=== PATIENT | female | born 1970 | race Two or more races ===

== ENCOUNTER 2023-02-22 18:00 | Emergency (ER) | payer MEDICAID ==
[~2023-02-22] VITALS: Ht 167.6 cm; Wt 83.6 kg
[2023-02-22] MEDS ORDERED: ibuprofen tablet 400 MG TABLET PO STA (20:03)
[2023-02-22] MEDS ORDERED: HYDROcodone/acetaminophen 5mg/325mg tablet PO STA (20:03)
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
[2023-02-22] MEDS ORDERED: ondansetron 4mg rapidly disintigrating tab PO ONE (21:55)
[2023-02-22] MEDS ORDERED: morphine 2 MG/ML inj. syringe IM ONE (21:55)
[2023-02-22] MEDS ORDERED: PRED20TA PO (21:59)
[2023-02-22] MEDS ORDERED: OXYC-145 PO (21:59)
[2023-02-22] MEDS ORDERED: CYCL-1 PO (21:59)
[2023-02-22] MEDS: prednisone 10mg tablet PO SCH ×2 (22:12→22:17)
[2023-02-22 22:42] VITALS: BP 124/69; PULSE 58; RESP 16; O2SAT 99
== END 2023-02-22 22:44 | disposition home or self-care (01) ==
LOC: ER 18:01 → EDBD 18:01 → ER 22:44
DX: S32.009A Unspecified fracture of unspecified lumbar vertebra, initial encounter for closed fracture (principal); X58.XXXA Exposure to other specified factors, initial encounter; Y93.89 Activity, other specified; Y92.89 Other specified places as the place of occurrence of the external cause; Y99.8 Other external cause status
CPT/HCPCS: 72128; 72131; 96372; 99285; J2270; J7512

== ENCOUNTER 2025-01-04 20:08 | Emergency (ER) | payer MEDICAID ==
[~2025-01-04] VITALS: Ht 167.6 cm; Wt 86.0 kg
[~2025-01-04 20:08] MED LIST: CYCL-1 PO; OXYC-145 PO
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
[2025-01-04 22:27] VITALS: BP 104/60; PULSE 60; RESP 15; O2SAT 99
[2025-01-04] MEDS ORDERED: METH-798 PO (22:31)
[2025-01-04] MEDS: ketorolac trometh 30MG/ML vial 30 MG/ML VIAL IM STA (22:57)
[2025-01-04 23:01] VITALS: TEMP 98
== END 2025-01-04 23:14 | disposition home or self-care (01) ==
LOC: ER 20:09
DX: M54.2 Cervicalgia (principal); M54.50 Low back pain, unspecified; Z88.8 Allergy status to other drugs, medicaments and biological substances; Z79.899 Other long term (current) drug therapy; V89.2XXA Person injured in unspecified motor-vehicle accident, traffic, initial encounter; Y93.89 Activity, other specified; Y92.89 Other specified places as the place of occurrence of the external cause; Y99.8 Other external cause status
CPT/HCPCS: 72040; 72100; 96372; 99284; J1885